=== PATIENT | male | born 1955 | race African-American/Black ===

== ENCOUNTER 2019-10-31 01:11 | Inpatient (IN) | payer OTHER ==
[~2019-10-31] VITALS: Ht 182.9 cm; Wt 111.7 kg
[2019-10-31] VITALS (10 sets, daily range): BP systolic 111–136; BP diastolic 65–96
[~2019-10-31 01:11] MED LIST: ASPI-1160; BENA20TA10; GABA100C; METF-516; SIMV20TA6; [UNRECOGNIZED DRUG - CODE]
[2019-10-31] MEDS ORDERED: SODIUM CHLORIDE 0.9% 1000ML BAG (SEPSIS BOLUS) IV ONE ×2 (01:30→03:15)
[2019-10-31] MEDS ORDERED: FUROSEMIDE 40MG/4ML VIAL IV ONE (01:30)
[2019-10-31] MEDS ORDERED: NITROGLYCERIN OINT 1GM/INCH UDPKT TD ONE (01:30)
[2019-10-31] MEDS ORDERED: ASPIRIN 81MG TABLET PO ONE (01:30)
[2019-10-31] MEDS ORDERED: HYDRALAZINE 20MG/ML VIAL IV ONE (02:00)
[2019-10-31 02:04] LABS: BG BASE EXCESS -4.2 mmol/L (-2.0-2.0); BG BILEVEL POS AIRWAY PRESSURE 18/7; BG CARBOXYHEMOGLOBIN 2.2 % (0.5-1.5); BG DEOXYHEMOGLOBIN 2.7 % (0.0-5.0); BG FRACTION INSPIRED OXYGEN 100; BG HCO3 ACT 22.4 mmol/L (22.0-26.0); BG METHEMOGLOBIN 0.2 % (0.0-1.5); BG OXYGEN SATURATION 97.2 % (92.0-98.5); BG OXYHEMOGLOBIN 94.9 % (94.0-97.0); BG PCO2 46.5 mmHg (35.0-45.0); BG PH 7.301 (7.350-7.450); BG PO2 78.9 mmHg (75.0-100.0); BG SAMPLE SITE RIGHT RADIAL; BG TOTAL HEMOGLOBIN 14.9 g/dL (12.0-18.0); BG VENT MODE MASK - BIPAP
[2019-10-31 02:04] LABS: BASOPHILS % 0.9 % (0.0-2.0); EOSINOPHILS % 7.4 % (0.0-5.0); HEMATOCRIT. 43.7 % (42.0-52.0); HEMOGLOBIN. 14.6 g/dL (14.0-18.0); LYMPHOCYTES % 40.5 % (20.0-50.0); MEAN CORPUSCULAR HEMOGLOBIN 27.9 pg (28.0-32.0); MEAN CORPUSCULAR VOLUME 83.4 fL (80.0-94.0); MEAN PLATELET VOLUME 9.8 fl (7.4-10.4); NEUTROPHILS % 46.2 % (40.0-76.0); PLATELET 309 x1000/uL (130-400); RED BLOOD CELL COUNT 5.24 mill/uL (4.7-6.1); RED CELL DISTRIBUTION WIDTH 14.5 % (11.6-14.6)
[2019-10-31 02:16] LABS: PARTIAL THROMBOPLASTIN TIME 22.9 sec (23.4-31.0); PROTHROMBIN TIME 10.7 sec (9.6-11.0)
[2019-10-31 02:18] LABS: CHLORIDE 107 mEq/L (98-107)
[2019-10-31] MEDS ORDERED: LEVOFLOXACIN 750MG PREMIX 150 ML IV ONE (03:15)
[2019-10-31 03:46] LABS: CLARITY URINE CLEAR (CLEAR); COLOR URINE YELLOW (YELLOW); KETONES URINE NEGATIVE (NEGATIVE); LEUKOCYTE ESTERASE URINE NEGATIVE (NEGATIVE); NITRITE URINE NEGATIVE (NEGATIVE); OCCULT BLOOD URINE NEGATIVE (NEGATIVE); PROTEIN URINE 2+ (NEGATIVE); SPECIFIC GRAVITY URINE 1.008 (1.005-1.030); UROBILINOGEN URINE 0.2 E.U./dL (0.2-1.0)
[2019-10-31] MEDS ORDERED: MORPHINE SULFATE 4 MG/ML CPJ (NOT FOR IM USE) IV STA (04:11)
[2019-10-31] MEDS ORDERED: ONDANSETRON HCL 4MG/2ML INJ IV STA (04:11)
[2019-10-31] MEDS ORDERED: IPRATROPIUM/ALBUTEROL 0.5-3(2.5)MG/3ML NEB HHN PRN (12:00)
[2019-10-31] MEDS ORDERED: ACETAMINOPHEN 325MG TABLET PO PRN (12:00)
[2019-10-31] MEDS ORDERED: CLONIDINE 0.1MG TABLET PO PRN (12:00)
[2019-10-31] MEDS ORDERED: ONDANSETRON HCL 4MG/2ML INJ IV PRN (12:00)
[2019-10-31] MEDS: HYDROCODONE/ACETAMINOPHEN 5/325MG TABLET PO PRN ×3 (12:41→21:30)
[2019-10-31] MEDS: FUROSEMIDE 40MG/4ML VIAL IV SCH ×2 (12:41→18:39)
[2019-10-31] MEDS: ENOXAPARIN 40MG/0.4ML SYR SUBCUT SCH (12:58)
[2019-10-31] MEDS ORDERED: MORPHINE SULFATE 2 MG/ML CPJ (NOT FOR IM USE) IV NR (15:45)
[2019-10-31] MEDS: METHYLPREDNISOLONE SOD SUCC 40 MG/ML VIAL IV SCH (18:39)
[2019-10-31 20:56] LABS: CANNABINOID URINE SCREEN NEGATIVE (NEGATIVE); METHADONE URINE SCREEN NEGATIVE (NEGATIVE); OPIATES URINE SCREEN PRESUMTIVE POSITIVE (NEGATIVE); PHENCYCLIDINE URINE SCREEN NEGATIVE (NEGATIVE)
[2019-10-31 20:58] LABS: *AMPHETAMINES SCREEN URINE NEGATIVE (NEGATIVE); *BARBITURATES SCREEN URINE NEGATIVE (NEGATIVE); *BENZODIAZEPINES SCREEN URINE NEGATIVE (NEGATIVE); *COCAINE SCREEN URINE PRESUMTIVE POSITIVE (NEGATIVE)
[2019-10-31] MEDS ORDERED: DEXTROSE 50% WATER 50ML SYRINGE IV PRN (22:15)
[2019-11-01] VITALS (13 sets, daily range): BP systolic 125–161; BP diastolic 76–98
[2019-11-01] MEDS: HYDROCODONE/ACETAMINOPHEN 5/325MG TABLET PO PRN ×4 (01:59→21:35)
[2019-11-01] MEDS: LEVOFLOXACIN 500MG PREMIX 100 ML IV SCH (04:31)
[2019-11-01] MEDS: BLOOD SUGAR DIAGNOSTIC STRIP TEST SCH ×4 (06:00→21:36)
[2019-11-01] MEDS: INSULIN LISPRO 100 UNITS/ML SUBCUT SCH ×4 (06:21→21:40)
[2019-11-01 07:07] LABS: CHLORIDE 106 mEq/L (98-107)
[2019-11-01 07:19] LABS: LDL CHOLESTEROL 153 mg/dL (5-100)
[2019-11-01 07:20] LABS: HDL CHOLESTEROL 37 mg/dL (40-59)
[2019-11-01 07:22] LABS: HEMATOCRIT. 43.2 % (42.0-52.0); HEMOGLOBIN. 14.4 g/dL (14.0-18.0); MEAN CORPUSCULAR HEMOGLOBIN 27.6 pg (28.0-32.0); MEAN CORPUSCULAR VOLUME 82.8 fL (80.0-94.0); MEAN PLATELET VOLUME 9.7 fl (7.4-10.4); PLATELET 246 x1000/uL (130-400); RED BLOOD CELL COUNT 5.22 mill/uL (4.7-6.1); RED CELL DISTRIBUTION WIDTH 14.4 % (11.6-14.6)
[2019-11-01] MEDS ORDERED: PNEUMOCOCCAL 23-VAL P-SAC VAC 0.5 ML IM ONE (08:00)
[2019-11-01] MEDS: METHYLPREDNISOLONE SOD SUCC 40 MG/ML VIAL IV SCH ×2 (09:57→17:00)
[2019-11-01] MEDS: THIAMINE HCL 100MG TABLET PO SCH (10:00)
[2019-11-01] MEDS: ENOXAPARIN 40MG/0.4ML SYR SUBCUT SCH (10:00)
[2019-11-01] MEDS: FUROSEMIDE 40MG/4ML VIAL IV SCH ×2 (10:00→17:00)
[2019-11-01] MEDS: ASPIRIN 81MG TABLET PO SCH (10:07)
[2019-11-01] MEDS ORDERED: ENOXAPARIN 60MG/0.6ML SYR SUBCUT SCH (10:45)
[2019-11-01] MEDS: AMLODIPINE 2.5MG TABLET PO SCH ×2 (12:40→21:31)
[2019-11-01] MEDS: ATORVASTATIN CALCIUM 40MG TABLET PO SCH (21:31)
[2019-11-01] MEDS: ENOXAPARIN 120MG/0.8ML SYR SUBCUT SCH (21:31)
[2019-11-01] MEDS: INSULIN GLARGINE UD 100 UNITS/ML SYR SUBCUT SCH (21:42)
[2019-11-02] VITALS (14 sets, daily range): BP systolic 117–150; BP diastolic 77–91
[2019-11-02] MEDS: LEVOFLOXACIN 500MG PREMIX 100 ML IV SCH (06:15)
[2019-11-02] MEDS: FUROSEMIDE 40MG/4ML VIAL IV SCH ×2 (06:18→18:03)
[2019-11-02] MEDS: BLOOD SUGAR DIAGNOSTIC STRIP TEST SCH ×4 (07:40→20:54)
[2019-11-02 08:10] LABS: PLATELET ESTIMATE NORMAL
[2019-11-02 08:57] LABS: HEMATOCRIT. 42.9 % (42.0-52.0); HEMOGLOBIN. 14.2 g/dL (14.0-18.0); MEAN CORPUSCULAR HEMOGLOBIN 27.3 pg (28.0-32.0); MEAN PLATELET VOLUME 9.5 fl (7.4-10.4); PLATELET 261 x1000/uL (130-400); RED BLOOD CELL COUNT 5.22 mill/uL (4.7-6.1); RED CELL DISTRIBUTION WIDTH 14.2 % (11.6-14.6)
[2019-11-02] MEDS: METHYLPREDNISOLONE SOD SUCC 40 MG/ML VIAL IV SCH ×2 (09:00→18:03)
[2019-11-02] MEDS: ASPIRIN 81MG TABLET PO SCH (09:01)
[2019-11-02] MEDS: THIAMINE HCL 100MG TABLET PO SCH (09:01)
[2019-11-02] MEDS: AMLODIPINE 2.5MG TABLET PO SCH ×2 (09:01→20:53)
[2019-11-02 09:07] LABS: CREATINE KINASE MB FRACTION 5.4 ng/mL (0.5-3.6)
[2019-11-02] MEDS: ENOXAPARIN 120MG/0.8ML SYR SUBCUT SCH ×2 (09:11→20:52)
[2019-11-02] MEDS: HYDROCODONE/ACETAMINOPHEN 5/325MG TABLET PO PRN ×3 (09:12→20:53)
[2019-11-02] MEDS: INSULIN LISPRO 100 UNITS/ML SUBCUT SCH ×4 (09:28→20:54)
[2019-11-02] MEDS: INSULIN GLARGINE UD 100 UNITS/ML SYR SUBCUT SCH ×2 (09:29→21:28)
[2019-11-02 12:28] LABS: PLATELET ESTIMATE NORMAL
[2019-11-02 12:39] LABS: BG BASE EXCESS -4.2 mmol/L (-2.0-2.0); BG CARBOXYHEMOGLOBIN 0.6 % (0.5-1.5); BG HCO3 ACT 19.8 mmol/L (22.0-26.0); BG METHEMOGLOBIN 0.3 % (0.0-1.5); BG OXYHEMOGLOBIN 94.1 % (94.0-97.0); BG PCO2 33.4 mmHg (35.0-45.0); BG SAMPLE SITE RIGHT RADIAL; BG TOTAL HEMOGLOBIN 14.7 g/dL (12.0-18.0); BG VENT MODE ROOM AIR
[2019-11-02] MEDS ORDERED: FUROSEMIDE 40MG/4ML VIAL IVP NR (18:45)
[2019-11-02] MEDS: ATORVASTATIN CALCIUM 40MG TABLET PO SCH (20:53)
[2019-11-03] VITALS (14 sets, daily range): BP systolic 109–148; BP diastolic 72–92
[2019-11-03] MEDS: LEVOFLOXACIN 500MG PREMIX 100 ML IV SCH (04:54)
[2019-11-03] MEDS: BLOOD SUGAR DIAGNOSTIC STRIP TEST SCH ×4 (05:56→20:17)
[2019-11-03] MEDS: HYDROCODONE/ACETAMINOPHEN 5/325MG TABLET PO PRN ×3 (06:10→21:08)
[2019-11-03 06:55] LABS: HEMATOCRIT. 44.2 % (42.0-52.0); HEMOGLOBIN. 14.5 g/dL (14.0-18.0); MEAN CORPUSCULAR HEMOGLOBIN 27.3 pg (28.0-32.0); MEAN CORPUSCULAR VOLUME 83.1 fL (80.0-94.0); MEAN PLATELET VOLUME 9.8 fl (7.4-10.4); PLATELET 251 x1000/uL (130-400); RED BLOOD CELL COUNT 5.32 mill/uL (4.7-6.1); RED CELL DISTRIBUTION WIDTH 14.5 % (11.6-14.6)
[2019-11-03] MEDS: FUROSEMIDE 40MG/4ML VIAL IV SCH ×3 (07:44→21:07)
[2019-11-03] MEDS: INSULIN LISPRO 100 UNITS/ML SUBCUT SCH ×4 (07:47→20:27)
[2019-11-03] MEDS: ENOXAPARIN 120MG/0.8ML SYR SUBCUT SCH ×2 (10:23→20:27)
[2019-11-03] MEDS: ASPIRIN 81MG TABLET PO SCH (10:23)
[2019-11-03] MEDS: DOCUSATE SODIUM 100MG CAPSULE PO SCH ×2 (10:23→16:59)
[2019-11-03] MEDS: THIAMINE HCL 100MG TABLET PO SCH (10:23)
[2019-11-03] MEDS: METHYLPREDNISOLONE SOD SUCC 40 MG/ML VIAL IV SCH ×2 (10:23→16:59)
[2019-11-03] MEDS: AMLODIPINE 2.5MG TABLET PO SCH ×2 (10:24→20:26)
[2019-11-03] MEDS: INSULIN GLARGINE UD 100 UNITS/ML SYR SUBCUT SCH ×2 (10:26→21:09)
[2019-11-03] MEDS: ATORVASTATIN CALCIUM 40MG TABLET PO SCH (20:26)
[2019-11-04] VITALS (9 sets, daily range): BP systolic 125–149; BP diastolic 71–95
[2019-11-04] MEDS: LEVOFLOXACIN 500MG PREMIX 100 ML IV SCH (04:04)
[2019-11-04] MEDS: FUROSEMIDE 40MG/4ML VIAL IV SCH (05:05)
[2019-11-04] MEDS: BLOOD SUGAR DIAGNOSTIC STRIP TEST SCH ×2 (05:58→11:47)
[2019-11-04] MEDS: INSULIN LISPRO 100 UNITS/ML SUBCUT SCH ×2 (07:41→12:19)
[2019-11-04] MEDS: METHYLPREDNISOLONE SOD SUCC 40 MG/ML VIAL IV SCH (09:17)
[2019-11-04] MEDS: DOCUSATE SODIUM 100MG CAPSULE PO SCH (09:18)
[2019-11-04] MEDS: THIAMINE HCL 100MG TABLET PO SCH (09:18)
[2019-11-04] MEDS: ASPIRIN 81MG TABLET PO SCH (09:18)
[2019-11-04] MEDS: AMLODIPINE 2.5MG TABLET PO SCH (09:20)
[2019-11-04] MEDS: ENOXAPARIN 120MG/0.8ML SYR SUBCUT SCH (09:20)
[2019-11-04] MEDS: INSULIN GLARGINE UD 100 UNITS/ML SYR SUBCUT SCH (09:23)
[2019-11-04 09:38] LABS: PLATELET ESTIMATE NORMAL
[2019-11-04] MEDS: HYDROCODONE/ACETAMINOPHEN 5/325MG TABLET PO PRN (09:55)
[2019-11-04] MEDS ORDERED: AMLODIPINE 5MG TABLET PO SCH (14:00)
[2019-11-04] MEDS ORDERED: HYDROCODONE/ACETAMINOPHEN 5/325MG TABLET PO PRN (16:00)
[2019-11-04] MEDS ORDERED: FUROSEMIDE 40MG TABLET PO SCH (17:15)
[2019-11-04] MEDS ORDERED: ATORVASTATIN CALCIUM 20MG TABLET PO SCH (21:00)
[2019-11-05] MEDS ORDERED: PREDNISONE 20MG TABLET PO SCH (09:00)
== END 2019-11-04 16:58 | DRG 291 ==
LOC: ER 01:11 → 3WST 03:46 → ENRESERV 07:57
PROVIDERS: ADMIT Internal Medicine; ATTEND Internal Medicine
PROC: 5A09357 Assistance with Respiratory Ventilation, Less than 24 Consecutive Hours, Continuous Positive Airway Pressure (ICD-10-PCS; principal; 2019-10-31)
DX: I13.0 Hypertensive heart and chronic kidney disease with heart failure and stage 1 through stage 4 chronic kidney disease, or unspecified chronic kidney disease (principal); I50.23 Acute on chronic systolic (congestive) heart failure; J96.01 Acute respiratory failure with hypoxia; N17.9 Acute kidney failure, unspecified; E87.2 Acidosis; J68.0 Bronchitis and pneumonitis due to chemicals, gases, fumes and vapors; I82.412 Acute embolism and thrombosis of left femoral vein; I42.0 Dilated cardiomyopathy; I16.0 Hypertensive urgency; N18.9 Chronic kidney disease, unspecified; E11.22 Type 2 diabetes mellitus with diabetic chronic kidney disease; F14.10 Cocaine abuse, uncomplicated; E78.5 Hyperlipidemia, unspecified; I34.0 Nonrheumatic mitral (valve) insufficiency; F17.210 Nicotine dependence, cigarettes, uncomplicated; G89.29 Other chronic pain; Z91.19 Patient's noncompliance with other medical treatment and regimen; Z79.82 Long term (current) use of aspirin; Z79.84 Long term (current) use of oral hypoglycemic drugs; Z79.899 Other long term (current) drug therapy; Z71.51 Drug abuse counseling and surveillance of drug abuser
CPT/HCPCS: 36415; 36600; 71045; 76700; 78582; 80048; 80053; 80061; 80305; 81003; 82375; 82550; 82553; 82805; 82962; 83605; 83735; 83880; 84145; 84439; 84443; 84484; 85025; 90732; 93005; 93306; 93970; 94660; 96374; 99291; A9558; J0360; J1650; J1815; J1940; J1956; J2270; J2405; J2920; J7030

== ENCOUNTER 2022-06-20 10:44 | Inpatient (IN) | payer MEDICARE, MEDICAID ==
[~2022-06-20] VITALS: Ht 182.9 cm; Wt 83.4 kg
[~2022-06-20 10:44] MED LIST changes: +ALBU90AE INH; +ASPI-1497 MT; +ATOR20TA MT; -BENA20TA10; +COR3 MT; +FURO-151 MT; +FURO-152 PO; -GABA100C; +GABA100C PO; +INSLIS SUBCUT; +LEVO500T90 MT; +LOSA25TA3 MT; -METF-516; +METF-818 PO; +SIMV-43; -SIMV20TA6; +XAR15 MT
[2022-06-20] MEDS ORDERED: ASPIRIN 325MG EC TABLET PO ONE (11:45)
[2022-06-20 11:46] LABS: BASOPHILS % 0.8 % (0.0-2.0); EOSINOPHILS % 4.7 % (0.0-5.0); HEMATOCRIT. 41.7 % (42.0-52.0); HEMOGLOBIN. 13.9 g/dL (14.0-18.0); LYMPHOCYTES % 20.7 % (20.0-50.0); MEAN CORPUSCULAR HEMOGLOBIN 27.5 pg (28.0-32.0); MEAN CORPUSCULAR VOLUME 82.1 fL (80.0-94.0); MEAN PLATELET VOLUME 9.4 fl (7.4-10.4); MONOCYTES % 4.8 % (2.0-8.0); PLATELET 236 x1000/uL (130-400); RED BLOOD CELL COUNT 5.08 mill/uL (4.7-6.1)
[2022-06-20 11:47] LABS: CHLORIDE 110 mEq/L (98-107)
[2022-06-20] MEDS ORDERED: IPRATROPIUM BROMIDE (0.02%) 0.5MG/2.5ML NEB HHN STA (12:03)
[2022-06-20] MEDS ORDERED: ALBUTEROL (0.083%) 2.5MG/3ML NEB HHN STA (12:03)
[2022-06-20] MEDS ORDERED: FUROSEMIDE 20MG/2ML VIAL IVP ONE (13:30)
[2022-06-20 18:16] VITALS: BP 109/87
[2022-06-20 20:00] VITALS: BP 132/91
[2022-06-20] MEDS ORDERED: DEXTROSE 50% WATER 50ML SYRINGE IV PRN (20:15)
[2022-06-20] MEDS ORDERED: TEMAZEPAM 15MG CAPSULE PO PRN (20:15)
[2022-06-20] MEDS: HYDROCODONE/ACETAMINOPHEN 5/325MG TABLET PO PRN (21:43)
[2022-06-20] MEDS: BLOOD SUGAR DIAGNOSTIC STRIP TEST SCH (21:44)
[2022-06-20] MEDS: INSULIN LISPRO 100 UNITS/ML SUBCUT SCH (21:44)
[2022-06-21] VITALS: BP 144/95
[2022-06-21] MEDS ORDERED: IPRATROPIUM/ALBUTEROL 0.5-3(2.5)MG/3ML NEB HHN PRN
[2022-06-21] MEDS ORDERED: ACETAMINOPHEN 325MG TABLET PO PRN
[2022-06-21] MEDS: FUROSEMIDE 40MG/4ML VIAL IVP SCH ×3 (00:13→17:05)
[2022-06-21] MEDS: MORPHINE SULFATE 2 MG/ML CPJ (NOT FOR IM USE) IV PRN ×4 (00:26→20:12)
[2022-06-21 04:00] VITALS: BP 131/92
[2022-06-21] MEDS: INSULIN LISPRO 100 UNITS/ML SUBCUT SCH ×4 (05:43→21:00)
[2022-06-21] MEDS: BLOOD SUGAR DIAGNOSTIC STRIP TEST SCH ×4 (05:43→20:55)
[2022-06-21 06:32] LABS: HEMATOCRIT. 40.9 % (42.0-52.0); HEMOGLOBIN. 13.9 g/dL (14.0-18.0); LYMPHOCYTES % 24.9 % (20.0-50.0); MEAN CORPUSCULAR HEMOGLOBIN 27.9 pg (28.0-32.0); MEAN CORPUSCULAR VOLUME 82.1 fL (80.0-94.0); MEAN PLATELET VOLUME 9.2 fl (7.4-10.4); MONOCYTES % 6.3 % (2.0-8.0); NEUTROPHILS % 59.8 % (40.0-76.0); PLATELET 218 x1000/uL (130-400); RED BLOOD CELL COUNT 4.99 mill/uL (4.7-6.1)
[2022-06-21 08:00] VITALS: BP 129/94
[2022-06-21] MEDS: ENOXAPARIN 40MG/0.4ML SYR SUBCUT SCH (08:35)
[2022-06-21] MEDS: CARVEDILOL 3.125 MG TABLET PO SCH ×2 (08:35→20:56)
[2022-06-21] MEDS: LOSARTAN POTASSIUM 50 MG TABLET PO SCH (08:36)
[2022-06-21 12:00] VITALS: BP 120/93
[2022-06-21 16:26] VITALS: BP 106/69
[2022-06-21] MEDS ORDERED: NALOXONE HCL 0.4MG/ML VIAL IV PRN (18:45)
[2022-06-21 18:55] LABS: *AMPHETAMINES SCREEN URINE NEGATIVE (NEGATIVE); *BARBITURATES SCREEN URINE NEGATIVE (NEGATIVE); *BENZODIAZEPINES SCREEN URINE NEGATIVE (NEGATIVE); *COCAINE SCREEN URINE PRESUMTIVE POSITIVE (NEGATIVE); CANNABINOID URINE SCREEN NEGATIVE (NEGATIVE); METHADONE URINE SCREEN NEGATIVE (NEGATIVE); OPIATES URINE SCREEN PRESUMTIVE POSITIVE (NEGATIVE); PHENCYCLIDINE URINE SCREEN NEGATIVE (NEGATIVE)
[2022-06-21 20:00] VITALS: BP 104/71
[2022-06-21] MEDS: AMLODIPINE 2.5MG TABLET PO SCH (20:56)
[2022-06-22] VITALS: BP 106/65
[2022-06-22] MEDS: MORPHINE SULFATE 2 MG/ML CPJ (NOT FOR IM USE) IV PRN ×4 (01:29→23:04)
[2022-06-22] MEDS: BLOOD SUGAR DIAGNOSTIC STRIP TEST SCH ×4 (06:40→20:35)
[2022-06-22] MEDS: INSULIN LISPRO 100 UNITS/ML SUBCUT SCH ×4 (07:10→20:46)
[2022-06-22] MEDS: ASPIRIN 81MG EC TABLET PO SCH (09:00)
[2022-06-22] MEDS: ENOXAPARIN 40MG/0.4ML SYR SUBCUT SCH (09:00)
[2022-06-22] MEDS: FUROSEMIDE 40MG/4ML VIAL IVP SCH ×3 (09:00→23:03)
[2022-06-22] MEDS: AMLODIPINE 2.5MG TABLET PO SCH ×2 (09:00→20:35)
[2022-06-22] MEDS: LOSARTAN POTASSIUM 50 MG TABLET PO SCH (09:00)
[2022-06-22] MEDS: CARVEDILOL 3.125 MG TABLET PO SCH ×2 (09:00→20:35)
[2022-06-22 12:04] LABS: BASOPHILS % 0.6 % (0.0-2.0); EOSINOPHILS % 7.7 % (0.0-5.0); HEMATOCRIT. 43.1 % (42.0-52.0); HEMOGLOBIN. 14.7 g/dL (14.0-18.0); LYMPHOCYTES % 18.5 % (20.0-50.0); MEAN CORPUSCULAR VOLUME 82.2 fL (80.0-94.0); MEAN PLATELET VOLUME 9.9 fl (7.4-10.4); MONOCYTES % 5.5 % (2.0-8.0); NEUTROPHILS % 67.7 % (40.0-76.0); PLATELET 234 x1000/uL (130-400); RED BLOOD CELL COUNT 5.24 mill/uL (4.7-6.1); RED CELL DISTRIBUTION WIDTH 14.9 % (11.6-14.6)
[2022-06-22] MEDS: PANTOPRAZOLE SODIUM 40 MG/VIAL IV SCH (12:37)
[2022-06-22] MEDS: PREDNISONE 20MG TABLET PO SCH (14:56)
[2022-06-22 20:00] VITALS: BP 104/84
[2022-06-23] VITALS: BP 102/64
[2022-06-23] MEDS: MORPHINE SULFATE 2 MG/ML CPJ (NOT FOR IM USE) IV PRN ×2 (03:59→09:44)
[2022-06-23 04:00] VITALS: BP 104/71
[2022-06-23] MEDS: IPRATROPIUM/ALBUTEROL 0.5-3(2.5)MG/3ML NEB HHN SCH ×4 (04:20→11:18)
[2022-06-23] MEDS: BLOOD SUGAR DIAGNOSTIC STRIP TEST SCH ×2 (06:44→11:40)
[2022-06-23] MEDS: INSULIN LISPRO 100 UNITS/ML SUBCUT SCH ×2 (06:54→14:15)
[2022-06-23 07:21] LABS: BASOPHILS % 0.2 % (0.0-2.0); EOSINOPHILS % 0.1 % (0.0-5.0); HEMATOCRIT. 44.4 % (42.0-52.0); HEMOGLOBIN. 15.2 g/dL (14.0-18.0); LYMPHOCYTES % 8.3 % (20.0-50.0); MEAN CORPUSCULAR VOLUME 81.7 fL (80.0-94.0); MEAN PLATELET VOLUME 9.5 fl (7.4-10.4); MONOCYTES % 3.8 % (2.0-8.0); NEUTROPHILS % 87.6 % (40.0-76.0); PLATELET 242 x1000/uL (130-400); RED BLOOD CELL COUNT 5.44 mill/uL (4.7-6.1); RED CELL DISTRIBUTION WIDTH 14.6 % (11.6-14.6)
[2022-06-23 08:00] VITALS: BP 120/70
[2022-06-23] MEDS ORDERED: LOSARTAN POTASSIUM 25 MG TABLET PO SCH (09:00)
[2022-06-23] MEDS: PANTOPRAZOLE SODIUM 40 MG/VIAL IV SCH (09:28)
[2022-06-23] MEDS: PREDNISONE 20MG TABLET PO SCH (09:28)
[2022-06-23] MEDS: FUROSEMIDE 40MG/4ML VIAL IVP SCH (09:28)
[2022-06-23] MEDS: ENOXAPARIN 40MG/0.4ML SYR SUBCUT SCH (09:28)
[2022-06-23] MEDS: AMLODIPINE 2.5MG TABLET PO SCH (09:29)
[2022-06-23] MEDS: ASPIRIN 81MG EC TABLET PO SCH (09:29)
[2022-06-23] MEDS: CARVEDILOL 3.125 MG TABLET PO SCH (09:30)
[2022-06-23 10:25] LABS: BG CARBOXYHEMOGLOBIN 0.7 % (0.5-1.5); BG DEOXYHEMOGLOBIN 2.9 % (0.0-5.0); BG FRACTION INSPIRED OXYGEN 21; BG HCO3 ACT 21.3 mmol/L (22.0-26.0); BG OXYGEN SATURATION 97.1 % (92.0-98.5); BG OXYHEMOGLOBIN 96.4 % (94.0-97.0); BG PCO2 32.8 mmHg (35.0-45.0); BG PO2 88.1 mmHg (75.0-100.0); BG SAMPLE SITE RIGHT RADIAL; BG TOTAL HEMOGLOBIN 16.3 g/dL (12.0-18.0); BG VENT MODE ROOM AIR
[2022-06-23 12:00] VITALS: BP 139/87
[2022-06-23] MEDS ORDERED: FURO40TA5 PO (12:23)
[2022-06-23] MEDS ORDERED: ALBU90AE INH (12:23)
[2022-06-23] MEDS ORDERED: P20 PO (12:23)
[2022-06-23] MEDS ORDERED: COR3 MT (12:23)
[2022-06-23] MEDS ORDERED: FURO-151 MT (12:23)
[2022-06-23] MEDS ORDERED: LOSA25TA3 MT (12:23)
[2022-06-23] MEDS: HYDROCODONE/ACETAMINOPHEN 5/325MG TABLET PO PRN (12:47)
[2022-06-23 14:23] VITALS: BP 139/87
[2022-06-24] MEDS ORDERED: FUROSEMIDE 40MG TABLET PO SCH (09:00)
[2022-06-24] MEDS ORDERED: FAMOTIDINE 20MG TABLET PO SCH (09:00)
== END 2022-06-23 16:20 | disposition home or self-care (01) | DRG 291 ==
LOC: ER 10:44 → 7EST 13:41 → EDBEDREQ 13:45 → EDBEDREQTM 13:45 → ENRESERV 15:33 → 7EST 19:37
PROVIDERS: ADMIT Internal Medicine; ATTEND Internal Medicine
DX: I13.0 Hypertensive heart and chronic kidney disease with heart failure and stage 1 through stage 4 chronic kidney disease, or unspecified chronic kidney disease (principal); I50.23 Acute on chronic systolic (congestive) heart failure; I42.8 Other cardiomyopathies; E78.5 Hyperlipidemia, unspecified; J44.9 Chronic obstructive pulmonary disease, unspecified; I49.3 Ventricular premature depolarization; I48.0 Paroxysmal atrial fibrillation; J98.01 Acute bronchospasm; N18.9 Chronic kidney disease, unspecified; E11.22 Type 2 diabetes mellitus with diabetic chronic kidney disease; F17.210 Nicotine dependence, cigarettes, uncomplicated; F19.10 Other psychoactive substance abuse, uncomplicated; F14.10 Cocaine abuse, uncomplicated; Z79.899 Other long term (current) drug therapy; Z79.01 Long term (current) use of anticoagulants; Z79.82 Long term (current) use of aspirin; Z79.84 Long term (current) use of oral hypoglycemic drugs; I34.0 Nonrheumatic mitral (valve) insufficiency; R77.8 Other specified abnormalities of plasma proteins; Z71.51 Drug abuse counseling and surveillance of drug abuser; M94.0 Chondrocostal junction syndrome [Tietze]
CPT/HCPCS: 36415; 36600; 71045; 80048; 80053; 80305; 82375; 82805; 82962; 83036; 83880; 84484; 85025; 93005; 93306; 93970; 94640; 99291; C9113; J1650; J1815; J1940; J2270; J7512